=== PATIENT | male | born 1995 | race Hispanic/Latino ===

== ENCOUNTER 2023-03-03 13:48 | Inpatient (IN) | payer OTHER ==
[~2023-03-03] VITALS: Ht 170.2 cm; Wt 70.3 kg
[2023-03-03] MEDS ORDERED: 0.9%NACL 1000ML 1,000 ML IV ONE ×2 (14:30→16:00)
[2023-03-03] MEDS ORDERED: KETOROLAC 15MG/ML VIAL (15MG/ML) IV ONE (14:30)
[2023-03-03 15:42] LABS: BASOPHILS % (AUTO) 0.1 % (0.0-5.0); HEMATOCRIT 44.7 % (42-54); LYMPHOCYTES % (AUTO) 5.9 % (21.0-51.0); MEAN CORPUSCULAR HEMOGLOBIN 29.3 pg (27.0-33.0); MEAN CORPUSCULAR HGB CONC 33.3 g/dL (32.0-36.0); MEAN CORPUSCULAR VOLUME 87.8 fL (79-99); MONOCYTES % (AUTO) 2.3 % (3.0-13.0); NEUTROPHILS % (AUTO) 91.3 % (40.0-77.0); PLATELET COUNT (AUTO) 202 K/uL (130-400); RED BLOOD CELL COUNT(AUTO) 5.09 MIL/uL (4.50-6.20); RED CELL DISTRIBUTION WIDTH 12.8 % (11.0-15.5); WHITE BLOOD COUNT (AUTO) 9.5 K/uL (4.8-10.8)
[2023-03-03 15:52] LABS: CARBON DIOXIDE 25 mmol/L (21-32); CHLORIDE 106 mmol/L (101-111); GLOMERULAR FILTR. RATE CALC 106 mL/min (>90); GLUCOSE,RANDOM 140 mg/dL (70-105); POTASSIUM 3.7 mmol/L (3.5-5.1); SODIUM SERUM 143 mmol/L (136-145); UREA NITROGEN, BLOOD 18 mg/dL (7-18)
[2023-03-03 15:56] LABS: ALANINE AMINOTRANSFERASE 24 U/L (12-78); ALBUMIN 4.5 g/dL (3.5-5.0); ASPARTATE AMINOTRANSFERASE 12 U/L (10-37); TOTAL PROTEIN, SERUM 8.4 g/dL (6.0-8.3)
[2023-03-03 15:58] LABS: LIPASE < 50 U/L (114-286)
[2023-03-03] MEDS ORDERED: TAMSULOSIN HCL 0.4 MG CAP.ER.24H PO ONE ×2 (16:00→18:30)
[2023-03-03 16:40] LABS: BILIRUBIN,URINE NEGATIVE (NEGATIVE); COLOR,URINE LIGHT-YELLOW (YELLOW); GLUCOSE, URINE (UA) NEGATIVE (NEGATIVE); KETONES,URINE NEGATIVE (NEGATIVE); LEUKOCYTE ESTERASE ,URINE NEGATIVE Leu/uL (NEGATIVE); NITRATE,URINE NEGATIVE (NEGATIVE); OCCULT BLOOD,URINE LARGE (NEGATIVE); PROTEIN,URINE 30 mg/dL (NEGATIVE); UROBILINOGEN,URINE 0.2 mg/dL (0.2-1.0)
[2023-03-03 16:49] LABS: APPEARANCE,URINE HAZY (CLEAR)
[2023-03-03 16:52] LABS: MUCUS,URINE RARE LPF (None Seen); RBC,URINE TNTC /HPF (0-1)
[2023-03-03] MEDS ORDERED: ONDANSETRON 4MG INJ IVP ONE (17:00)
[2023-03-03] MEDS ORDERED: MORPHINE 4 MG SYG IVP ONE (17:00)
[2023-03-03] MEDS ORDERED: ZOLPIDEM TARTRATE 5 MG TAB PO PRN (18:30)
[2023-03-03] MEDS ORDERED: MORPHINE 4 MG SYG IV PRN (18:30)
[2023-03-03] MEDS ORDERED: ONDANSETRON 4MG INJ IV PRN (18:30)
[2023-03-03] MEDS ORDERED: MORPHINE 2 MG SYG IV PRN (18:30)
[2023-03-03] MEDS ORDERED: ACETAMINOPHEN 325 MG TAB PO PRN ×2 (18:30)
[2023-03-03] MEDS: FAMOTIDINE 20MG VIAL IV SCH (21:00)
[2023-03-03] MEDS: KETOROLAC 10 MG TABLET PO SCH (22:12)
[2023-03-03 22:48] VITALS: BP 121/66
[2023-03-04] VITALS: BP 120/65
[2023-03-04] MEDS: KETOROLAC 10 MG TABLET PO SCH ×2 (00:30→06:30)
[2023-03-04 04:00] VITALS: BP 119/52
[2023-03-04 04:59] LABS: BASOPHILS % (AUTO) 0.1 % (0.0-5.0); EOSINOPHILS % (AUTO) 0.5 % (0.0-8.0); LYMPHOCYTES % (AUTO) 29.8 % (21.0-51.0); MEAN CORPUSCULAR HGB CONC 33.4 g/dL (32.0-36.0); MEAN CORPUSCULAR VOLUME 89.6 fL (79-99); MONOCYTES % (AUTO) 9.8 % (3.0-13.0); NEUTROPHILS % (AUTO) 59.3 % (40.0-77.0); PLATELET COUNT (AUTO) 162 K/uL (130-400); RED BLOOD CELL COUNT(AUTO) 4.24 MIL/uL (4.50-6.20); RED CELL DISTRIBUTION WIDTH 13.2 % (11.0-15.5); WHITE BLOOD COUNT (AUTO) 7.4 K/uL (4.8-10.8)
[2023-03-04 05:13] LABS: POTASSIUM 3.6 mmol/L (3.5-5.1)
[2023-03-04 08:00] VITALS: BP 110/63
[2023-03-04] MEDS: FAMOTIDINE 20MG VIAL IV SCH ×2 (08:54→20:54)
[2023-03-04] MEDS: TAMSULOSIN HCL 0.4 MG CAP.ER.24H PO SCH (08:54)
[2023-03-04] MEDS: ENOXAPARIN SODIUM 40 MG/0.4 ML SYRINGE SQ SCH (08:54)
[2023-03-04 12:00] VITALS: BP 134/77
[2023-03-04] MEDS: LACTATED RINGERS 1000ML 1,000 ML IV SCH ×2 (12:00→16:59)
[2023-03-04] MEDS: CEFTRIAXONE 1G VIAL IVPB SCH (12:29)
[2023-03-04] MEDS ORDERED: KETOROLAC 15MG/ML VIAL (15MG/ML) IV PRN (12:30)
[2023-03-04] MEDS: PHENAZOPYRIDINE HCL 200 MG TABLET PO SCH ×2 (13:12→20:54)
[2023-03-04 16:00] VITALS: BP 114/69
[2023-03-04 20:00] VITALS: BP 142/78
[2023-03-05] VITALS: BP 115/55
[2023-03-05 04:00] VITALS: BP 123/72
[2023-03-05 05:36] LABS: BASOPHILS % (AUTO) 0.5 % (0.0-5.0); EOSINOPHILS % (AUTO) 0.9 % (0.0-8.0); HEMATOCRIT 39.3 % (42-54); LYMPHOCYTES % (AUTO) 34.4 % (21.0-51.0); MEAN CORPUSCULAR HEMOGLOBIN 29.7 pg (27.0-33.0); MEAN CORPUSCULAR HGB CONC 33.6 g/dL (32.0-36.0); MEAN CORPUSCULAR VOLUME 88.5 fL (79-99); MONOCYTES % (AUTO) 8.7 % (3.0-13.0); NEUTROPHILS % (AUTO) 55.3 % (40.0-77.0); PLATELET COUNT (AUTO) 164 K/uL (130-400); RED BLOOD CELL COUNT(AUTO) 4.44 MIL/uL (4.50-6.20); RED CELL DISTRIBUTION WIDTH 12.7 % (11.0-15.5); WHITE BLOOD COUNT (AUTO) 4.3 K/uL (4.8-10.8)
[2023-03-05 05:44] LABS: ALBUMIN 3.6 g/dL (3.5-5.0); POTASSIUM 3.7 mmol/L (3.5-5.1); TOTAL PROTEIN, SERUM 6.8 g/dL (6.0-8.3)
[2023-03-05 08:00] VITALS: BP 117/68
[2023-03-05] MEDS: FAMOTIDINE 20MG VIAL IV SCH ×2 (09:26→20:05)
[2023-03-05] MEDS: PHENAZOPYRIDINE HCL 200 MG TABLET PO SCH ×3 (09:26→20:05)
[2023-03-05] MEDS: TAMSULOSIN HCL 0.4 MG CAP.ER.24H PO SCH (09:26)
[2023-03-05] MEDS: ENOXAPARIN SODIUM 40 MG/0.4 ML SYRINGE SQ SCH (09:26)
[2023-03-05 11:27] VITALS: BP 134/82
[2023-03-05] MEDS: CEFTRIAXONE 1G VIAL IVPB SCH (13:31)
[2023-03-05] MEDS ORDERED: PEG 3350/NA SULF,BICARB,CL/KCL 4000 ML SOLN PO ONE (15:00)
[2023-03-05 16:00] VITALS: BP 126/76
[2023-03-05 20:00] VITALS: BP 125/80
[2023-03-06] VITALS: BP 129/73
[2023-03-06 04:00] VITALS: BP 118/56
[2023-03-06 04:00] LABS: BASOPHILS % (AUTO) 0.4 % (0.0-5.0); EOSINOPHILS % (AUTO) 1.2 % (0.0-8.0); HEMATOCRIT 42.9 % (42-54); LYMPHOCYTES % (AUTO) 41.6 % (21.0-51.0); MEAN CORPUSCULAR HEMOGLOBIN 28.8 pg (27.0-33.0); MEAN CORPUSCULAR HGB CONC 32.9 g/dL (32.0-36.0); MEAN CORPUSCULAR VOLUME 87.7 fL (79-99); MONOCYTES % (AUTO) 8.6 % (3.0-13.0); PLATELET COUNT (AUTO) 175 K/uL (130-400); RED BLOOD CELL COUNT(AUTO) 4.89 MIL/uL (4.50-6.20); RED CELL DISTRIBUTION WIDTH 12.4 % (11.0-15.5)
[2023-03-06 04:25] LABS: CREATININE 0.9 mg/dL (0.5-1.5); POTASSIUM 3.8 mmol/L (3.5-5.1); TOTAL PROTEIN, SERUM 7.5 g/dL (6.0-8.3)
[2023-03-06 07:58] VITALS: BP 123/74
[2023-03-06] MEDS ORDERED: IOHEXOL-350 50ML VIAL IV ONE (08:14)
[2023-03-06] MEDS ORDERED: IOHEXOL-350 75 ML VIAL IV ONE (08:15)
[2023-03-06] MEDS: FAMOTIDINE 20MG VIAL IV SCH (09:03)
[2023-03-06] MEDS: TAMSULOSIN HCL 0.4 MG CAP.ER.24H PO SCH (09:03)
[2023-03-06] MEDS: ENOXAPARIN SODIUM 40 MG/0.4 ML SYRINGE SQ SCH (09:03)
[2023-03-06 11:10] VITALS: BP 150/87
[2023-03-06] MEDS ORDERED: SULF1TAB42 PO (12:11)
[2023-03-06] MEDS ORDERED: IBUP-2070 PO (12:11)
[2023-03-06] MEDS ORDERED: TAMS-1 PO (12:11)
[2023-03-06] MEDS ORDERED: PHEN-776 PO (12:11)
[2023-03-06] MEDS: CEFTRIAXONE 1G VIAL IVPB SCH (12:50)
[2023-03-06] MEDS ORDERED: PHENAZOPYRIDINE HCL 200 MG TABLET PO SCH (14:00)
== END 2023-03-06 14:20 | disposition home or self-care (01) | DRG 690 ==
LOC: EDH 13:48 → EDHIP 13:49 → 4BH 22:33
PROVIDERS: ADMIT Internal Medicine; ATTEND Internal Medicine
DX: N13.6 Pyonephrosis (principal); F12.90 Cannabis use, unspecified, uncomplicated; Z59.7 Insufficient social insurance and welfare support
CPT/HCPCS: 36415; 74176; 74400; 80048; 80053; 81001; 83690; 85025; 87040; 87077; 87186; G0378; J0696; J1650; J1885; J2270; J2405; J3490; J7030; Q9967